=== PATIENT | female | born 1985 | race Caucasian/White ===

== ENCOUNTER 2016-10-18 13:25 | Inpatient (IN) | payer BC ==
[~2016-10-18] VITALS: Ht 170.2 cm; Wt 75.0 kg
[2016-10-26] MEDS ORDERED: BENA25TA6 PO (11:32)
[2016-10-26] MEDS ORDERED: QUASTAB PO (11:32)
[2016-10-26] MEDS ORDERED: LINA290C PO (11:32)
[2016-10-26] MEDS ORDERED: CYMB30CA PO (11:32)
[2016-10-26] MEDS ORDERED: CARB200T PO (11:32)
[2016-10-26] MEDS ORDERED: HYDR-3366 PO (11:32)
[2016-10-26 11:43] LABS: AUTOMATED NEUTROPHIL # 7.8 TH/MM3 (1.8-7.7); BASOPHIL % 0.5 % (0.0-2.0); EOSINOPHIL # 0.1 TH/MM3 (0-0.4); EOSINOPHIL % 0.5 % (0.0-4.0); HEMATOCRIT 39.4 % (35.0-46.0); HEMO FLAGS DIFF FINAL; LYMPH % 15.1 % (9.0-44.0); LYMPHOCYTE # 1.4 TH/MM3 (1.0-4.8); MEAN CELL VOLUME 88.9 FL (80.0-100.0); MEAN CORPUSCULAR HEMOGLOBIN 30.2 PG (27.0-34.0); MONO % 3.3 % (0.0-8.0); NEUT % 80.6 % (16.0-70.0); PLATELET COUNT 416 TH/MM3 (150-450); RED BLOOD COUNT 4.43 MIL/MM3 (4.00-5.30); RED CELL DISTRIBUTION WIDTH 13.5 % (11.6-17.2); WHITE BLOOD COUNT 9.6 TH/MM3 (4.0-11.0)
[2016-10-26 11:50] VITALS: BP 114/75; PULSE 100; RESP 16; TEMP 97.9; O2SAT 97
[2016-10-26] MEDS ORDERED: INSULIN HUMAN REGULAR 1,000 UNITS/10 ML VIAL SQ PRN (12:00)
[2016-10-26] MEDS ORDERED: SODIUM CHLORID 0.9% 500 ML IV PRN (12:00)
[2016-10-26] MEDS ORDERED: PROPOFOL 200 MG/20 ML AMP IV ONE (12:00)
[2016-10-26] MEDS ORDERED: PHENYLEPH/NS 1000 MCG/10 ML SYR IV ONE (12:00)
[2016-10-26] MEDS ORDERED: LACTATED RINGER'S 1000 ML INJ 1,000 ML IV ONE (12:00)
[2016-10-26] MEDS ORDERED: CHLORHEXIDINE GLUCONATE 2 % 1 PACK (2 CLOTHS) TOPICAL PRN (12:00)
[2016-10-26] MEDS ORDERED: POVIDONE IODINE 5% (ANTISEPSIS KIT) 4 APPLICATIONS EACH NARE PRN (12:00)
[2016-10-26] MEDS ORDERED: ALVIMOPAN 12 MG CAPSULE - On Call PO SCH (12:00)
[2016-10-26] MEDS ORDERED: METOPROLOL TARTRATE 25 MG TAB PO PRN (12:00)
[2016-10-26] MEDS ORDERED: ONDANSETRON HCL 4 MG/2 ML VIAL IV PUSH ONE (12:00)
[2016-10-26] MEDS ORDERED: LACTATED RINGER'S 1000 ML IV PRN (12:00)
[2016-10-26] MEDS ORDERED: fentaNYL CITRATE 250 MCG/5 ML AMP IV ONE (12:00)
[2016-10-26] MEDS ORDERED: THROMBIN (TOPICAL) 5,000 UNIT VIAL ONE (12:02)
[2016-10-26] MEDS ORDERED: METRONIDAZOLE 500 MG/100 ML ISONTONIC SOLN IV SCH (12:15)
[2016-10-26] MEDS ORDERED: DEXT 5%-NACL 0.9% 1000 ML INJ 1,000 ML IV SCH (12:15)
[2016-10-26] MEDS ORDERED: ceFAZolin 1,000 MG/NS 100 ML IV SCH ×2 (12:15)
[2016-10-26] MEDS ORDERED: FAMOTIDINE 20 MG/2 ML VIAL ONE (13:13)
--- NOTE | 2016-10-26 14:18 | PD.OP ---
Operative Report Date of Surgery: Oct 26, 2016 Preoperative Diagnosis: Colostomy closure/LAR Postoperative Diagnosis: Same Procedure: Cystoscopy with bilateral ureteral catheter placement Anesthesia: NEERAJ Surgeon: Moo Back Chief Of Police(s): None Resident Surgeon: None Operation and Findings: Patient was brought to the operating room and identified myself as Malina Montiel. She's placed the dorsal lithotomy position, prepped and draped in usual sterile fashion, received preprocedure antibiotics, and general endotracheal tube anesthesia was administered. A 20 Senegalese cystoscope was inserted in the bladder patterson cystoscopy did not reveal any abnormalities. The left ureteral orifice was identified and a 5 Senegalese opening catheter was inserted in the left ureteral orifice without difficulty. This was repeated on the right side without difficulty. A 16 Senegalese Ya catheter was inserted in the bladder and the catheters were then anchored to the Ya. She tolerated the procedure well. Moo Back DO Oct 26, 2016 14:18
[2016-10-26] MEDS ORDERED: SUGAMMADEX SODIUM 200 MG/2 ML VIAL IV PUSH ONE ×2 (14:31)
[2016-10-26] MEDS ORDERED: ACETAMINOPHEN 1000 MG/100 ML VIAL IV ONE (15:27)
[2016-10-26] MEDS ORDERED: *HYDROmorphone PF 1 MG VIAL PERIprocedural Use ONLY ONE ×2 (16:13→16:59)
[2016-10-26] MEDS ORDERED: DO NOT ADM ANY ANTICOAGULANT DRUGS PRN (16:15)
[2016-10-26] MEDS ORDERED: *ONDANSETRON 4 MG VIAL PERIprocedural Use ONLY ONE (16:19)
[2016-10-26] MEDS ORDERED: *MEPERIDINE 25 MG INJ VIAL PERIprocedural Use ONLY ONE (16:23)
[2016-10-26] MEDS ORDERED: *hydrOXYzine 25 MG VIAL PERIprocedural Use ONLY IM ONE (16:24)
[2016-10-26] MEDS: D5-LR + KCL 20 MEQ INJ 1,000 ML IV SCH ×3 (16:25→21:07)
[2016-10-26] MEDS ORDERED: fentaNYL CITRATE 250 MCG/5 ML AMP ONE (16:26)
[2016-10-26] MEDS ORDERED: MORPHINE SULFATE 4 MG/ML INJ ONE (16:26)
[2016-10-26] MEDS ORDERED: POTASSIUM CHLOR 20 MEQ PREMIX 100 ML IV PRN (16:30)
[2016-10-26] MEDS ORDERED: NALOXONE HCL 0.4 MG/ML AMP IV PRN (16:30)
[2016-10-26] MEDS ORDERED: ENALAPRILAT 1.25 MG/ML VIAL IV PRN (16:30)
[2016-10-26] MEDS ORDERED: SODIUM CHLORIDE 0.9% FLUSH 10 ML FLUSH IV FLUSH PRN (16:30)
[2016-10-26] MEDS ORDERED: ACETAMINOPHEN/HYDROcodone 325 MG/5 MG TAB PO PRN ×2 (16:30)
[2016-10-26] MEDS ORDERED: Post-op Orders (for Pharmacy) MISC XX ONE (16:30)
[2016-10-26] MEDS: PCA - TOTAL MG MORPHINE DELIVERED PER SHIFT SCH ×2 (16:30→21:09)
[2016-10-26] MEDS ORDERED: BENZOCAINE 6 MG/MENTHOL 10 MG LOZENGE BUCCAL PRN (16:30)
[2016-10-26] MEDS ORDERED: ZOLPIDEM TARTRATE 5 MG TAB PO PRN (16:30)
[2016-10-26] MEDS ORDERED: POTASSIUM CHLOR 40 MEQ PREMIX 100 ML IV PRN (16:30)
[2016-10-26 17:06] LABS: AUTOMATED NEUTROPHIL # 9.9 TH/MM3 (1.8-7.7); BASOPHIL % 0.2 % (0.0-2.0); EOSINOPHIL % 0.1 % (0.0-4.0); HEMATOCRIT 30.7 % (35.0-46.0); HEMO FLAGS DIFF FINAL; MEAN CELL VOLUME 90.1 FL (80.0-100.0); MEAN CORPUSCULAR HEMOGLOBIN 30.5 PG (27.0-34.0); MEAN CORPUSCULAR HGB CONC 33.9 % (32.0-36.0); NEUT % 84.7 % (16.0-70.0); PLATELET COUNT 294 TH/MM3 (150-450); RED BLOOD COUNT 3.41 MIL/MM3 (4.00-5.30); RED CELL DISTRIBUTION WIDTH 13.8 % (11.6-17.2); WHITE BLOOD COUNT 11.6 TH/MM3 (4.0-11.0)
[2016-10-26] MEDS ORDERED: *diphenhydrAMINE HCL 50 MG/ML VIAL PERIprocedural Use ONLY ONE (17:28)
[2016-10-26 17:45] LABS: BICARBONATE 22.4 MEQ/L (21.0-32.0); POTASSIUM 3.1 MEQ/L (3.5-5.1)
[2016-10-26] MEDS ORDERED: HYDROmorphone HCL PF 1 MG/ML VIAL IV ONE (18:00)
[2016-10-26] MEDS ORDERED: METOCLOPRAMIDE HCL 10 MG/2 ML VIAL IVS SCH (18:00)
[2016-10-26 18:02] LABS: CALCIUM-PROTEIN CORRECTED 7.8 MG/DL (8.5-10.1)
[2016-10-26] MEDS: KETOROLAC TROMETHAMINE 30 MG/ML (IVP) VIAL IVP PRN (18:02)
[2016-10-26] MEDS ORDERED: *morphine SULFATE 8 MG/ML PERIprocedure ONLY ONE (18:27)
[2016-10-26 18:45] VITALS: BP 149/97; PULSE 127; RESP 16; TEMP 98.4; O2SAT 100
[2016-10-26] MEDS: MORPHINE SULFATE 30 MG/30 ML PCA IV SCH ×2 (19:09→22:08)
[2016-10-26 20:00] VITALS: BP 131/79; PULSE 125; PULSE 133; RESP 18; TEMP 98.9; O2SAT 97
[2016-10-26] MEDS: carBAMazepine 200 MG TAB PO SCH (21:00)
[2016-10-26] MEDS: ceFAZolin 2 GM PREMIX 50 ML IV SCH (21:05)
[2016-10-26] MEDS: FUROSEMIDE 20 MG/2 ML VIAL IV SCH (21:06)
[2016-10-26] MEDS: metroNIDAZOLE 500 MG INJ 100 ML IV SCH (21:07)
[2016-10-26] MEDS: SODIUM CHLORIDE 0.9% FLUSH 10 ML FLUSH IV FLUSH SCH (21:08)
[2016-10-26 23:50] VITALS: BP 115/83; PULSE 132; RESP 18; TEMP 98.7; O2SAT 93
[2016-10-27] VITALS (7 sets, daily range): BP systolic 112–125; BP diastolic 61–81; PULSE 100–131; RESP 16–20; TEMP 97–98.6; O2SAT 92–95
[2016-10-27] MEDS: KETOROLAC TROMETHAMINE 30 MG/ML (IVP) VIAL IVP PRN ×4 (00:12→18:38)
[2016-10-27] MEDS: diphenhydrAMINE HCL 50 MG/ML VIAL IV PRN ×4 (00:12→18:38)
[2016-10-27] MEDS: MORPHINE SULFATE 30 MG/30 ML PCA IV SCH ×2 (01:11→06:35)
[2016-10-27 05:34] LABS: BASOPHIL % 0.2 % (0.0-2.0); EOSINOPHIL % 0.1 % (0.0-4.0); HEMATOCRIT 35.1 % (35.0-46.0); HEMO FLAGS DIFF FINAL; LYMPH % 10.7 % (9.0-44.0); LYMPHOCYTE # 1.3 TH/MM3 (1.0-4.8); MEAN CORPUSCULAR HGB CONC 33.4 % (32.0-36.0); MONO % 6.7 % (0.0-8.0); NEUT % 82.3 % (16.0-70.0); PLATELET COUNT 342 TH/MM3 (150-450); RED CELL DISTRIBUTION WIDTH 13.6 % (11.6-17.2); WHITE BLOOD COUNT 12.2 TH/MM3 (4.0-11.0)
[2016-10-27] MEDS: ceFAZolin 2 GM PREMIX 50 ML IV SCH ×2 (05:43→13:42)
[2016-10-27] MEDS: metroNIDAZOLE 500 MG INJ 100 ML IV SCH ×2 (05:43→13:41)
[2016-10-27] MEDS: PCA - TOTAL MG MORPHINE DELIVERED PER SHIFT SCH ×2 (05:48→06:53)
[2016-10-27 05:55] LABS: BICARBONATE 29.1 MEQ/L (21.0-32.0); POTASSIUM 3.9 MEQ/L (3.5-5.1)
--- NOTE | 2016-10-27 07:10 | MP ---
cc: MAGGY GARCIA MD, DALIA M.D. YOUNG, TSE TOLLAND, JOHN T. M.D. BIRKEDAL, CHRISTIAN L. MD DOSS, MD, ADELE DATE OF SURGERY 10/26/2016 PREOPERATIVE DIAGNOSIS Colostomy and Consuelo pouch. POSTOPERATIVE DIAGNOSIS Colostomy and Consuelo pouch. PROCEDURE Sigmoid colectomy with closure of colostomy with low anterior resection. ANESTHESIA General endotracheal SURGEON Dr. Kirby STEAM BLOCKER Dr. Brody ESTIMATED BLOOD LOSS 50 cc. OPERATIVE FINDINGS This patient is a 31-year-old patient who was referred to me for colostomy closure. The patient developed severe constipation and a Stercoral ulcer and perforation of her sigmoid colon about four months ago and underwent a colostomy, Consuelo pouch by Dr. Reyes Corona. She was sent to me for closure because there was a question of whether she should have a subtotal colectomy. In speaking to the patient preoperatively, she has never really had any attempts at treating her constipation and at the time of me seeing her, she was moving her bowels fairly well. The patient has had multiple medical problems and surgeries at her young age of [age] years old. At age 17, she had upper GI endoscopies and colonoscopies and a cholecystectomy in 2012. The gallbladder was acalculous at that time. She also had a Isauro fundoplication done in 2010 for extreme bile reflux. She has a lot of problems with nausea and vomiting. She takes many medications. She is on at least five 10 mg hydrocodone a day. She says that her constipation has improved after the surgery markedly since she went on Linzess 290 mcg a day and she is going every day through her colostomy and her stool is quite soft. All of her CT scans were reviewed as were her barium enemas. She does have postural orthostatic tachycardia syndrome where her pulse elevates when she gets up sometimes as high as 150. Apparently this was diagnosed at the [facility]. At surgery, exploration of the abdominal cavity revealed that the stomach, small bowel and colon was all palpably normal. There was quite a long Consuelo pouch with all of her rectum and probably 6 inches of sigmoid colon remaining with Prolene sutures stuck to the left pelvic sidewall. I was able to resect that portion of the sigmoid colon, takedown the colostomy, do a colorectal anastomosis without splenic flexure mobilization. Bilateral ureteral catheters were passed by urology to ensure ureteral identification. Attempted colonoscopy was done after the resection anastomosis, however, we are unable to do it because of nonfunctioning equipment and inability to get other colonoscope expeditiously. For this reason, the colon was palpated carefully and rigid sigmoidoscopy was done at the end of the case to check for the integrity of the anastomosis. OPERATIVE TECHNIQUE The patient was placed on the table in the supine position. After adequate general endotracheal anesthesia, the legs were placed in the perineal lithotomy position. The abdomen and perineum were prepped and draped in the usual manner as was the vagina. A midline skin incision was made from the pubis above her previous incision, but not quite to the xiphoid. Her previous keloid scar was excised. Incision was taken down through the linea alba and the peritoneal cavity was entered with the above-mentioned findings. There was very little in the way of adhesions. There were some omental adhesions to the right side and the cecum and these were taken down easily. The cecum was mobilized up to allow for adequate visualization of the pelvis and the distal sigmoid and rectal stump was easily identified, dissected free and then the superior hemorrhoidal vessels were clamped, cut and ligated distally toward the sigmoid colon, sigmoid branches and the retrorectal space was entered and the lateral pelvic peritoneum was incised bilaterally and the rectum was mobilized almost to the pelvic floor. Next, the mesorectum was clamped, cut and ligated and the rectum was divided after placing a pursestring stapling device. The 6 inch segment of sigmoid colon was removed and passed from the table. Next, our attention was turned to the colostomy site and the colostomy site was taken down from the skin with a transverse elliptical incision into the subcutaneous tissue and then removing it from the fascia. Once this was done, the remainder of the sigmoid and descending colon was mobilized along its peritoneal reflection up to but not including the splenic flexure. The ureter was identified and protected at all times. The mesocolon was clamped, cut and ligated and then the pursestring stapling device was placed in the proximal bowel and the bowel was divided. The anvil of the 33 Ethicon ILS stapling device was placed in the proximal bowel and the pursestring was tied. Dr. Brody then went below and placed the EEA instrument transanally and the distal pursestring was tied around the trocar. The instrument was connected, closed and fired creating the anastomosis. There was no tension on the anastomosis and the blood supply was excellent. It was right at the top of the rectum. Next, Dr. Brody did a rigid sigmoidoscopy examination as mentioned above with insufflation of air into the rectum and sigmoid colon with saline solution in the pelvis and no air leaks were identified. Hemostasis was excellent and maintained throughout with electrocautery and ligature. The pelvis was irrigated thoroughly with saline solution using 2 liters and aspirated dry. The bowels were replaced in the abdominal cavity in an chief engineer research manner and then the colostomy site was closed with a single stranded #1 PDS for the post rectus sheath and a single stranded #1 PDS for the anterior rectus sheath. The posterior rectus sheath was closed transversely. The anterior rectus sheath was closed vertically. Next, the midline incision was closed with a double-stranded #1 PDS fully closing the fascia and then the subcutaneous tissue was irrigated with a liter and a half of saline solution and then a half a liter in the colostomy site. The skin was closed with running 3-0 Vicryl subcuticular sutures for all the wounds. Dressings were applied. Sponge, needle and instrument counts were reported as correct. The estimated blood loss was 50 cc. Operating time was one hour and 40 minutes. The patient tolerated the procedure well and left the operating room in good condition. MD TAMANNA Bran/MILO /4:42 PM /6:49 AM
[2016-10-27] MEDS: ALVIMOPAN 12 MG CAPSULE PO SCH ×2 (09:00→21:27)
[2016-10-27] MEDS: carBAMazepine 200 MG TAB PO SCH ×2 (09:00→21:00)
[2016-10-27] MEDS ORDERED: ALVIMOPAN 12 MG CAPSULE - Post-op dosing PO SCH (09:00)
[2016-10-27] MEDS: SODIUM CHLORIDE 0.9% FLUSH 10 ML FLUSH IV FLUSH SCH ×2 (09:00→21:00)
[2016-10-27] MEDS: LEVONORGESTREL ETHINYL ESTRADIOL PO SCH (09:00)
[2016-10-27] MEDS: PANTOPRAZOLE SODIUM 40 MG VIAL IVP SCH (09:00)
[2016-10-27] MEDS: DULoxetine HCl DR 30 MG CAP PO SCH (09:00)
[2016-10-27] MEDS: FUROSEMIDE 20 MG/2 ML VIAL IV SCH ×2 (09:00→21:00)
[2016-10-27] MEDS: ONDANSETRON HCL 4 MG/2 ML VIAL IV PRN ×2 (09:05→18:46)
[2016-10-27] MEDS: NS IV SCH ×2 (12:24)
[2016-10-27] MEDS: HYDROMORPHONE IV SCH ×2 (12:24)
[2016-10-27] MEDS: PCA - TOTAL MG DILAUDID DELIVERED PER SHIFT IV SCH ×2 (14:39→21:26)
--- NOTE | 2016-10-27 16:30 | HHI.PR ---
Subjective Remarks Pt c/o constant pain of 10 but now dozing off for 1-2 hr intervals. She is c/o Migraines and nausea. Denies vomiting. Will not wear binder for help with pain. Will not wear SCD. Explained need to be OOB ambulating and SCD use. Pt has difficult pain issues due to large poly narcotic use at home for various complaints. 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 Have advised restarting Hydrocodone but she refuses due to nausea. Objective Vital Signs Date Time Temp Pulse Resp B/P Pulse Ox O2 Delivery O2 Flow Rate FiO2 10/27/16 15:42 98.1 129 18 118/74 92 10/27/16 15:42 112 10/27/16 14:39 18 10/27/16 13:45 16 10/27/16 13:45 18 10/27/16 12:24 18 10/27/16 11:24 98.1 129 18 118/74 92 10/27/16 07:56 125 10/27/16 07:56 98.0 121 18 115/72 94 10/27/16 06:53 16 10/27/16 06:35 16 10/27/16 05:48 14 10/27/16 04:45 94 21 10/27/16 03:53 98.6 131 16 125/81 94 10/27/16 03:00 127 10/27/16 01:11 16 10/26/16 23:50 98.7 132 18 115/83 93 10/26/16 22:08 18 10/26/16 21:09 18 10/26/16 20:00 98.9 125 18 131/79 97 10/26/16 20:00 133 10/26/16 19:09 15 10/26/16 18:45 98.4 127 16 149/97 100 10/26/16 18:30 98.7 99 18 132/83 100 Nasal Cannula 2 10/26/16 18:00 98 18 125/79 100 Nasal Cannula 2 10/26/16 17:30 104 17 132/78 100 Nasal Cannula 2 10/26/16 17:15 99 17 131/73 100 Nasal Cannula 2 10/26/16 17:00 101 17 129/74 100 Nasal Cannula 2 10/26/16 16:45 110 18 129/76 98 Nasal Cannula 2 10/26/16 16:30 101 15 126/76 100 Nasal Cannula 2 I/O 10/26/16 10/26/16 10/26/16 10/27/16 10/27/16 10/27/16 07:00 15:00 23:00 07:00 15:00 23:00 Intake Total 2600 ml 480 ml Output Total 300 ml 1250 ml Balance 2300 ml -770 ml Intake Oral 480 ml IV Total 600 ml Other 2000 ml Output Urine Total 250 ml 1250 ml Estimated Blood Loss 50 ml Result Diagram: 10/27/16 0500 10/27/16 0500 Objective Remarks VS-S Abd: flat, dressing dry I&Os and labs:OK Assessment and Plan Assessment and Plan Stable POD#1. Uncontrolled pain an issue. Explained to pt and family need to be OOB, SCD's, [place] and cough and deep breathing. Royce Kirby MD Oct 27, 2016 16:30
[2016-10-27] MEDS: HEPARIN SODIUM - SQ 10,000 UNITS/ML VIAL SQ SCH (21:28)
[2016-10-28] VITALS: BP 111/64; PULSE 116; RESP 20; TEMP 98.8; O2SAT 96
[2016-10-28] MEDS: ACETAMINOPHEN/HYDROcodone 325 MG/10 MG TAB PO PRN ×4 (00:34→20:22)
[2016-10-28] MEDS: KETOROLAC TROMETHAMINE 30 MG/ML (IVP) VIAL IVP PRN ×4 (00:48→20:47)
[2016-10-28] MEDS: ONDANSETRON HCL 4 MG/2 ML VIAL IV PRN ×4 (00:48→20:46)
[2016-10-28] MEDS: diphenhydrAMINE HCL 50 MG/ML VIAL IV PRN ×5 (00:48→20:47)
[2016-10-28] MEDS: D5-LR + KCL 20 MEQ INJ 1,000 ML IV SCH ×3 (03:30→21:28)
[2016-10-28 05:55] LABS: AUTOMATED NEUTROPHIL # 9.1 TH/MM3 (1.8-7.7); BASOPHIL % 0.2 % (0.0-2.0); EOSINOPHIL # 0.1 TH/MM3 (0-0.4); EOSINOPHIL % 0.7 % (0.0-4.0); HEMATOCRIT 30.8 % (35.0-46.0); HEMO FLAGS DIFF FINAL; LYMPH % 11.5 % (9.0-44.0); LYMPHOCYTE # 1.3 TH/MM3 (1.0-4.8); MEAN CELL VOLUME 90.6 FL (80.0-100.0); MEAN CORPUSCULAR HEMOGLOBIN 29.9 PG (27.0-34.0); NEUT % 81.6 % (16.0-70.0); PLATELET COUNT 304 TH/MM3 (150-450); RED BLOOD COUNT 3.39 MIL/MM3 (4.00-5.30); RED CELL DISTRIBUTION WIDTH 13.6 % (11.6-17.2); WHITE BLOOD COUNT 11.2 TH/MM3 (4.0-11.0)
[2016-10-28] MEDS: PCA - TOTAL MG DILAUDID DELIVERED PER SHIFT IV SCH ×3 (06:00→21:52)
[2016-10-28 06:16] LABS: BICARBONATE 28.2 MEQ/L (21.0-32.0); POTASSIUM 4.2 MEQ/L (3.5-5.1)
[2016-10-28 08:00] VITALS: BP 124/66; PULSE 125; RESP 18; TEMP 98.3; O2SAT 98
[2016-10-28] MEDS: FUROSEMIDE 20 MG/2 ML VIAL IV SCH ×2 (08:27→20:47)
[2016-10-28] MEDS: HEPARIN SODIUM - SQ 10,000 UNITS/ML VIAL SQ SCH ×2 (08:29→20:46)
[2016-10-28] MEDS: carBAMazepine 200 MG TAB PO SCH ×2 (08:29→20:46)
[2016-10-28] MEDS: DULoxetine HCl DR 30 MG CAP PO SCH ×2 (08:29→08:49)
[2016-10-28] MEDS: ALVIMOPAN 12 MG CAPSULE PO SCH ×2 (08:29→20:46)
[2016-10-28] MEDS: SODIUM CHLORIDE 0.9% FLUSH 10 ML FLUSH IV FLUSH SCH ×2 (08:30→20:47)
[2016-10-28] MEDS: PANTOPRAZOLE SODIUM 40 MG VIAL IVP SCH (08:30)
--- NOTE | 2016-10-28 08:39 | HHI.PR ---
Subjective Remarks POD # 2 s/p Resection/Reanastomosis Chang's Pouch Moaning in pain, won't answer questions Objective Vital Signs Date Time Temp Pulse Resp B/P Pulse Ox O2 Delivery O2 Flow Rate FiO2 10/28/16 06:00 18 10/28/16 00:00 98.8 116 20 111/64 96 10/27/16 21:26 18 10/27/16 20:00 97.0 100 20 112/61 95 10/27/16 15:42 98.1 129 18 118/74 92 10/27/16 15:42 112 10/27/16 14:39 18 10/27/16 13:45 16 10/27/16 13:45 18 10/27/16 12:24 18 10/27/16 11:24 98.1 129 18 118/74 92 I/O 10/27/16 10/27/16 10/27/16 10/28/16 10/28/16 10/28/16 07:00 15:00 23:00 07:00 15:00 23:00 Intake Total 480 ml 1434 ml 1295 ml Output Total 1250 ml 500 ml Balance -770 ml 934 ml 1295 ml Intake Oral 480 ml 240 ml 120 ml IV Total 1194 ml 1175 ml Output Urine Total 1250 ml 500 ml # Voids 2 0 # Bowel Movements 0 0 Result Diagram: 10/28/16 0525 10/28/16 0525 Objective Remarks Abdomen soft, nondistended, tender Wound clean Assessment and Plan Assessment and Plan Continue mobilization Already on extremely high doses of narcotics Await bowel function Isa Esparza MD Oct 28, 2016 08:39
[2016-10-28] MEDS: LEVONORGESTREL ETHINYL ESTRADIOL PO SCH (09:00)
[2016-10-28 12:00] VITALS: BP 114/62; PULSE 117; RESP 18; TEMP 97.9; O2SAT 100
[2016-10-28 16:00] VITALS: BP 114/69; PULSE 116; RESP 19; TEMP 98.3; O2SAT 95
[2016-10-28 20:00] VITALS: BP 111/69; PULSE 130; RESP 20; TEMP 100.1; O2SAT 95
[2016-10-29] VITALS: BP 117/69; PULSE 117; RESP 18; TEMP 97.9; O2SAT 95
[2016-10-29 04:00] VITALS: BP 123/76; PULSE 128; RESP 18; TEMP 97.3; O2SAT 99
[2016-10-29] MEDS: ONDANSETRON HCL 4 MG/2 ML VIAL IV PRN ×4 (04:02→22:19)
[2016-10-29] MEDS: KETOROLAC TROMETHAMINE 30 MG/ML (IVP) VIAL IVP PRN ×3 (04:03→16:29)
[2016-10-29] MEDS: diphenhydrAMINE HCL 50 MG/ML VIAL IV PRN ×4 (04:03→22:19)
[2016-10-29] MEDS: PCA - TOTAL MG DILAUDID DELIVERED PER SHIFT IV SCH ×3 (05:56→22:00)
[2016-10-29 08:00] VITALS: BP 108/66; PULSE 126; RESP 17; TEMP 98.1; O2SAT 97
[2016-10-29] MEDS: PANTOPRAZOLE SODIUM 40 MG VIAL IVP SCH ×2 (08:49→09:00)
[2016-10-29] MEDS: HEPARIN SODIUM - SQ 10,000 UNITS/ML VIAL SQ SCH ×2 (08:50→20:32)
[2016-10-29] MEDS: carBAMazepine 200 MG TAB PO SCH ×2 (08:50→20:32)
[2016-10-29] MEDS: ALVIMOPAN 12 MG CAPSULE PO SCH ×2 (08:51→20:32)
[2016-10-29] MEDS: FUROSEMIDE 20 MG/2 ML VIAL IV SCH (08:51)
[2016-10-29] MEDS: DULoxetine HCl DR 30 MG CAP PO SCH (08:51)
[2016-10-29] MEDS: LEVONORGESTREL ETHINYL ESTRADIOL PO SCH (09:00)
[2016-10-29] MEDS: D5-LR + KCL 20 MEQ INJ 1,000 ML IV SCH (09:02)
[2016-10-29] MEDS: SODIUM CHLORIDE 0.9% FLUSH 10 ML FLUSH IV FLUSH SCH ×2 (09:03→20:31)
--- NOTE | 2016-10-29 09:04 | HHI.PR ---
Subjective Remarks POD # 3 s/p Resection/Reanastomosis Chang's Pouch Slightly less uncomfortable Objective Vital Signs Date Time Temp Pulse Resp B/P Pulse Ox O2 Delivery O2 Flow Rate FiO2 10/29/16 08:00 98.1 126 17 108/66 97 10/29/16 05:56 18 10/29/16 05:03 18 10/29/16 04:00 97.3 128 18 123/76 99 10/29/16 00:00 97.9 117 18 117/69 95 10/28/16 21:52 18 10/28/16 21:22 18 10/28/16 20:00 100.1 130 20 111/69 95 10/28/16 16:00 98.3 116 19 114/69 95 10/28/16 14:00 12 10/28/16 12:00 97.9 117 18 114/62 100 I/O 10/28/16 10/28/16 10/28/16 10/29/16 10/29/16 10/29/16 07:00 15:00 23:00 07:00 15:00 23:00 Intake Total 1295 ml 951 ml 2351 ml 1088 ml Output Total 2250 ml 600 ml 1400 ml Balance 1295 ml -1299 ml 1751 ml -312 ml Intake Oral 120 ml 951 ml 320 ml 320 ml IV Total 1175 ml 2031 ml 768 ml Output Urine Total 2250 ml 600 ml 1400 ml # Voids 0 # Bowel Movements 0 1 0 0 Result Diagram: 10/28/16 0525 10/28/16 0525 Objective Remarks Abdomen soft, nondistended, tender Wound clean Assessment and Plan Assessment and Plan Continue mobilization Passing some stool Advance diet Isa Esparza MD Oct 29, 2016 09:04
[2016-10-29] MEDS: NS IV SCH ×2 (10:06)
[2016-10-29] MEDS: HYDROMORPHONE IV SCH ×2 (10:06)
[2016-10-29 12:00] VITALS: BP 112/66; PULSE 118; RESP 17; TEMP 98.6; O2SAT 94
[2016-10-29] MEDS: ACETAMINOPHEN/HYDROcodone 325 MG/10 MG TAB PO PRN ×2 (14:05→22:20)
[2016-10-29 16:00] VITALS: BP 118/70; PULSE 118; RESP 18; TEMP 98.4; O2SAT 91
[2016-10-29 20:00] VITALS: BP 120/73; PULSE 79; PULSE 99; RESP 16; TEMP 99; O2SAT 98
[2016-10-30] VITALS: BP 146/84; PULSE 118; RESP 17; TEMP 100.8; O2SAT 95
[2016-10-30] MEDS: NS IV SCH ×2 (01:19)
[2016-10-30] MEDS: HYDROMORPHONE IV SCH ×2 (01:19)
[2016-10-30] MEDS: ONDANSETRON HCL 4 MG/2 ML VIAL IV PRN ×2 (04:21→09:45)
[2016-10-30] MEDS: diphenhydrAMINE HCL 50 MG/ML VIAL IV PRN ×2 (04:21→10:50)
[2016-10-30] MEDS: ACETAMINOPHEN/HYDROcodone 325 MG/10 MG TAB PO PRN ×2 (04:22→10:50)
[2016-10-30 04:26] VITALS: BP 133/84; PULSE 133; RESP 17; TEMP 100; O2SAT 97
[2016-10-30 06:00] VITALS: RESP 18
[2016-10-30] MEDS: PCA - TOTAL MG DILAUDID DELIVERED PER SHIFT IV SCH (06:00)
[2016-10-30] MEDS: PANTOPRAZOLE SODIUM 40 MG VIAL IVP SCH (09:00)
[2016-10-30] MEDS: DULoxetine HCl DR 30 MG CAP PO SCH (09:00)
[2016-10-30] MEDS: LEVONORGESTREL ETHINYL ESTRADIOL PO SCH (09:00)
[2016-10-30] MEDS: SODIUM CHLORIDE 0.9% FLUSH 10 ML FLUSH IV FLUSH SCH (09:00)
--- NOTE | 2016-10-30 09:41 | HHI.DCPOC ---
Discharge Care Plan Diagnosis: (1) Colostomy closure (2) Status post partial resection of colon Your Health Problems Are: Difficulty with ADL Appetite Changes Irregular Bowel Function Exercise Tolerance Additional Problems Pain control Goals to Promote Your Health * To prevent worsening of your condition and complications * To maintain your health at the optimal level Directions to Meet Your Goals Take your medications as prescribed Follow your dietary instruction Follow activity as directed Keep your appointments as scheduled Take your immunizations and boosters as scheduled If your symptoms worsen call your PCP, if no PCP go to Urgent Care Center or Emergency Room Smoking is Dangerous to Your Health. Avoid second hand smoke Call the 24-hour hour crisis hotline for domestic abuse at Royce Kirby MD Oct 30, 2016 09:41
[2016-10-30] MEDS: carBAMazepine 200 MG TAB PO SCH (09:44)
[2016-10-30] MEDS: ALVIMOPAN 12 MG CAPSULE PO SCH (09:44)
[2016-10-30] MEDS: HEPARIN SODIUM - SQ 10,000 UNITS/ML VIAL SQ SCH (09:45)
--- NOTE | 2016-10-30 09:48 | HHI.PR ---
Subjective Remarks Pt c/o nausea, still with pain but better control. May want to go home today. Will send with Hydrocodone 10mg to use over her normal daily dose for pain control. Objective Vital Signs Date Time Temp Pulse Resp B/P Pulse Ox O2 Delivery O2 Flow Rate FiO2 10/30/16 06:00 18 10/30/16 05:22 18 10/30/16 04:26 100.0 133 17 133/84 97 10/30/16 01:49 18 10/30/16 01:19 18 10/30/16 00:00 100.8 118 17 146/84 95 10/29/16 22:00 18 10/29/16 20:00 99.0 99 16 120/73 98 10/29/16 16:00 98.4 118 18 118/70 91 10/29/16 14:00 16 10/29/16 12:00 98.6 118 17 112/66 94 10/29/16 11:23 16 I/O 10/29/16 10/29/16 10/29/16 10/30/16 10/30/16 10/30/16 07:00 15:00 23:00 07:00 15:00 23:00 Intake Total 1088 ml 1300 ml 1128 ml 2023 ml Output Total 1400 ml 950 ml 600 ml Balance -312 ml 350 ml 528 ml 2023 ml Intake Oral 320 ml 1300 ml 560 ml 360 ml IV Total 768 ml 568 ml 1663 ml Output Urine Total 1400 ml 950 ml 600 ml # Voids 2 2 # Bowel Movements 0 0 Result Diagram: 10/28/16 0525 10/28/16524 Objective Remarks VS-S Temp max 100.2 Abd: flat, wound clean, no redness I&Os and labs:OK Assessment and Plan Assessment and Plan Stable POD#4 Mild temp elevation probably secondary to atelectasis Plan: Keep eye on wound. Urge cough and deep breaths. Possible D/C today or tomorrow Royce Kirby MD Oct 30, 2016 09:48
--- NOTE | 2016-11-21 22:21 | MD ---
cc: MINAANGELIKA ADMISSION DATE: 10/26/2016 DISCHARGE DATE: 10/30/2016 ADMISSION DIAGNOSIS Colostomy and Consuelo pouch. DISCHARGE DIAGNOSIS Closure of colostomy and Consuelo pouch with sigmoid colectomy and low anterior resection. HISTORY This patient is a 31-year-old patient who was referred to me for a colostomy closure. The patient developed severe constipation and a stercoral ulcer and perforation of her sigmoid colon about four months ago and underwent a colostomy, Consuelo pouch by Dr. Reyes Triplett. She was sent to me for closure because there was a questions of whether she should have a subtotal colectomy. In speaking to the patient preoperatively. she has never really had any attempts at treating her chronic constipation. At the time of seeing her, she was move her bowels fairly well. The patient also has multiple medical problems and surgeries at her young age and she takes many medications including multiple hydrocodone which are causing her constipation. For this reason, we decided to simply close her colostomy without subtotal colectomy. LABORATORY DATA The pathology report on the removed specimens showed a segment of colon with moderate acute colitis, cryptitis consistent with diversion colitis. HOSPITAL COURSE The patient was admitted to the hospital on 10/26 and underwent sigmoid colectomy with closure of colostomy and a low anterior resection. Postoperatively, she did well but pain control was a major difficulty given the fact that she is on so many narcotics at home and required large doses of intravenous narcotics postoperatively. This was also complicated by the fact that she had multiple problems with migraine headaches. On the first postoperative day, she was started on clear liquids. On the second postoperative day, she was started on full liquids. On the third postoperative day she was started on regular diet. She went home from the hospital on postoperative day #4 in good condition. She was instructed to do no driving for 2 weeks, do no heavy lifting for 6 weeks and to call me with any problems. She left the hospital in good condition. MD TAMANNA Bran/ /10:10 AM /10:16 PM TG
== END 2016-10-30 12:18 | disposition home or self-care (01) | DRG 330 ==
LOC: HSDI 10-26 10:55 → HCIS 10-26 18:41 → N07B 10-27 18:32
PROVIDERS: ADMIT Colon & Rectal Surgery; ATTEND Colon & Rectal Surgery
PROC: 0DJD8ZZ Inspection of Lower Intestinal Tract, Via Natural or Artificial Opening Endoscopic (ICD-10-PCS; 2016-10-26)
PROC: 0T9B80Z Drainage of Bladder with Drainage Device, Via Natural or Artificial Opening Endoscopic (ICD-10-PCS; 2016-10-26)
PROC: 0DBN0ZZ Excision of Sigmoid Colon, Open Approach (ICD-10-PCS; principal; 2016-10-26 13:20)
DX: Z43.3 Encounter for attention to colostomy (principal); J98.11 Atelectasis; F32.9 Major depressive disorder, single episode, unspecified; G43.909 Migraine, unspecified, not intractable, without status migrainosus; K21.9 Gastro-esophageal reflux disease without esophagitis; I49.8 Other specified cardiac arrhythmias; Z88.2 Allergy status to sulfonamides
CPT/HCPCS: 76937; 80048; 84155; 85025; 86850; 86900; 86901; 88304; 88307; 94150; C9113; J0131; J0690; J1170; J1200; J1644; J1885; J1940; J2175; J2270; J2370; J2405; J3010; J3410; J3480; J7120